=== PATIENT | male | born 1980 | race Caucasian/White ===

== ENCOUNTER 2018-07-11 16:04 | Emergency (ER) | payer BC ==
[2018-07-11 16:47] VITALS: BP 125/78
--- NOTE | 2018-07-11 18:02 | UC ---
Shoulder Pain HPI - HPI Summary HPI Summary: Woke up 2 weeks ago with left shoulder pain. Has decreased range of movement. Denies any discrete injury or trauma. 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 No numbness/tingling. Right-hand dominant. - History of Current Complaint Chief Complaint: UCUpperExtremity Stated Complaint: SHOULDER PAIN Time Seen by Provider: 07/11/18 17:45 Hx Obtained From: Patient Onset/Duration: Gradual Onset, Lasting Weeks, Still Present Timing: Constant Severity Initially: Moderate Severity Currently: Moderate Location Of Pain: Is Discrete @ - LEFT SHOULDER Pain Intensity: 5 Pain Scale Used: 0-10 Numeric Character: Sharp Aggravating Factor(s): Movement Alleviating Factor(s): Rest Associated Signs And Symptoms: Negative: Weakness, Numbness/Tingling Related History: Dominant Hand Right - Allergies/Home Medications Allergies/Adverse Reactions: Allergies Allergy/AdvReac Type Severity Reaction Status Date / Time No Known Allergies Allergy Verified 07/11/18 16:46 PMH/Surg Hx/FS Hx/Imm Hx Previously Healthy: Yes - Surgical History Surgical History: Yes Surgery Procedure, Year, and Place: T+A A CHILD. REVISION RIGHT LONG FINGER AMP 03/22 [facility] - Family History Known Family History: Positive: Non-Contributory - Social History Alcohol Use: Occasionally Substance Use Type: None Smoking Status (MU): Light Every Day Tobacco Smoker Type: Cigarettes Length of Time of Smoking/Using Tobacco: 7 YRS Have You Smoked in the Last Year: Yes When Did the Patient Quit Smoking/Using Tobacco: 1/2 PPD Review of Systems All Other Systems Reviewed And Are Negative: Yes Constitutional: Positive: Negative Skin: Positive: Negative Respiratory: Positive: Negative Cardiovascular: Positive: Negative Gastrointestinal: Positive: Negative Musculoskeletal: Positive: Arthralgia, Decreased ROM Physical Exam Triage Information Reviewed: Yes Appearance: Well-Appearing, No Pain Distress, Well-Nourished Vital Signs: Initial Vital Signs Temp 98.9 F 07/11/18 16:43 Pulse 90 07/11/18 16:43 Resp 19 07/11/18 16:43 BP 125/78 07/11/18 16:43 Pulse Ox 99 07/11/18 16:43 Vital Signs Reviewed: Yes Eyes: Positive: Conjunctiva Clear ENT: Positive: Hearing grossly normal Neck: Positive: Supple Respiratory: Positive: No respiratory distress, No accessory muscle use Cardiovascular: Positive: Pulses Normal Abdomen Description: Positive: Soft Musculoskeletal: Positive: No Edema, ROM Limited @ - LEFT SHOULDER, Other: - POSITIVE NEER, EMPTY CAN, APLEY SCRATCH AND CROSS ARM. EQUIVOCAL MCADAMS. Neurological: Positive: Alert Psychological: Positive: Age Appropriate Behavior Skin: Negative: Rashes Diagnostics - Radiology LEFT SHOULDER XRAYS Radiology Interpretation Completed By: ED Physician Summary of Radiographic Findings: UNREMARKABLE Shoulder Course/Dx - Differential Dx/Diagnosis Provider Diagnosis: Sprain of left shoulder Discharge - Sign-Out/Discharge Documenting (check all that apply): Patient Departure All imaging exams completed and their final reports reviewed: No - Discharge Plan Condition: Stable Disposition: HOME Patient Education Materials: Shoulder Sprain (ED) Forms: *Work Release Referrals: Kennedy Hanley MD [Medical Doctor] - 2 Weeks Additional Instructions: XRAYS OF LEFT SHOULDER TODAY UNREMARKABLE ON MY INITIAL INTERPRETATION. WE WILL CALL YOU IF THE RADIOLOGY READ DIFFERS. REST, IBUPROFEN. WEAR THE SLING NEEDED FOR COMFORT. AVOID OVERHEAD ACTIVITIES AND ANY HEAVY LIFTING, REACHING, PUSHING, PULLING, GRIPPING, TWISTING ACTIVITIES WITH THE LEFT ARM. FOLLOW-UP WITH ORTHO IF YOU DO NOT IMPROVE OVER THE NEXT 1-2 WEEKS. GO TO THE ED WITHOUT FAIL IF YOU DEVELOP CHEST PAIN, SHORTNESS OF BREATH, NAUSEA /VOMITING, DIZZINESS, WORSENING LEFT ARM PAIN OR ANY OTHER CONCERNING SYMPTOMS. CALL THE NUMBER BELOW FOR ASSISTANCE IN ESTABLISHING WITH A PCP An additional resource available to assist in finding the appropriate physician for your health care needs is the [facility] ([facility]). You may contact them by calling [phone]. - Billing Disposition and Condition Condition: STABLE Disposition: Home
--- NOTE | 2018-07-12 20:19 | UC ---
- Progress Note Progress Note: RADIOLOGY REPORT REVIEWED. UNREMARKABLE. NO CHANGE IN MANAGEMENT. Course/Dx - Diagnoses Provider Diagnoses: Sprain of left shoulder Discharge - Sign-Out/Discharge Documenting (check all that apply): Post-Discharge Follow Up All imaging exams completed and their final reports reviewed: Yes - Discharge Plan Condition: Stable Disposition: HOME Patient Education Materials: Shoulder Sprain (ED) Forms: *Work Release Referrals: Kennedy Hanley MD [Medical Doctor] - 2 Weeks Additional Instructions: XRAYS OF LEFT SHOULDER TODAY UNREMARKABLE ON MY INITIAL INTERPRETATION. WE WILL CALL YOU IF THE RADIOLOGY READ DIFFERS. REST, IBUPROFEN. WEAR THE SLING NEEDED FOR COMFORT. AVOID OVERHEAD ACTIVITIES AND ANY HEAVY LIFTING, REACHING, PUSHING, PULLING, GRIPPING, TWISTING ACTIVITIES WITH THE LEFT ARM. FOLLOW-UP WITH ORTHO IF YOU DO NOT IMPROVE OVER THE NEXT 1-2 WEEKS. GO TO THE ED WITHOUT FAIL IF YOU DEVELOP CHEST PAIN, SHORTNESS OF BREATH, NAUSEA /VOMITING, DIZZINESS, WORSENING LEFT ARM PAIN OR ANY OTHER CONCERNING SYMPTOMS. CALL THE NUMBER BELOW FOR ASSISTANCE IN ESTABLISHING WITH A PCP An additional resource available to assist in finding the appropriate physician for your health care needs is the [facility] ([facility]). You may contact them by calling [phone]. - Billing Disposition and Condition Condition: STABLE Disposition: Home
== END 2018-07-11 18:35 | disposition home or self-care (01) ==
LOC: UCEAST 16:04
DX: S43.402A Unspecified sprain of left shoulder joint, initial encounter (principal); X58.XXXA Exposure to other specified factors, initial encounter; Y92.9 Unspecified place or not applicable; F17.210 Nicotine dependence, cigarettes, uncomplicated
CPT/HCPCS: 99201; G0463

== ENCOUNTER 2018-11-03 07:05 | Emergency (ER) | payer BC ==
[2018-11-03 07:19] VITALS: BP 132/73
--- NOTE | 2018-11-03 08:07 | UC ---
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 STRUCK HIS RIGHT RIB CAGE ON THE HANDRAIL. HAS PAIN WITH DEEP INSPIRATION, COUGH, SNEEZE, LAUGHING. NO SHORTNESS OF BREATH. NO FEVER. NOT SPITTING UP BLOOD. - History Of Current Complaint Stated Complaint: RIB INJURY Time Seen by Provider: 11/03/18 07:12 Hx Obtained From: Patient Onset/Duration: Sudden Onset, Lasting Hours, Still Present Onset Of Pain: Immediate Severity Initially: Moderate Severity Currently: Moderate Pain Intensity: 8 Pain Scale Used: 0-10 Numeric Mechanism Of Injury: Direct Blow Aggravating Factor(s): Movement, Deep Breathing, Cough Alleviating factor(s): Rest Associated Signs And Symptoms: Negative: SOB, Chest Pain, Cough, Abdominal Pain , Fever, Nausea - Allergies/Home Medications Allergies/Adverse Reactions: Allergies Allergy/AdvReac Type Severity Reaction Status Date / Time No Known Allergies Allergy Verified 11/03/18 07:19 PMH/Surg Hx/FS Hx/Imm Hx Previously Healthy: Yes - Surgical History Surgical History: Yes Surgery Procedure, Year, and Place: T+A A CHILD. REVISION RIGHT LONG FINGER AMP 03/22 [facility] - Family History Known Family History: Positive: Non-Contributory - Social History Alcohol Use: Occasionally Substance Use Type: None Smoking Status (MU): Light Every Day Tobacco Smoker Type: Cigarettes Amount Used/How Often: 1/2ppd Length of Time of Smoking/Using Tobacco: 7 YRS Have You Smoked in the Last Year: Yes When Did the Patient Quit Smoking/Using Tobacco: 1/2 PPD Household Exposure Type: Cigarettes Review of Systems All Other Systems Reviewed And Are Negative: Yes Constitutional: Positive: Negative Skin: Positive: Bruising Respiratory: Positive: Negative Cardiovascular: Positive: Negative Gastrointestinal: Positive: Negative Musculoskeletal: Positive: Other: - RIGHT RIB CAGE PAIN Physical Exam Triage Information Reviewed: Yes Appearance: Well-Appearing, Well-Nourished, Pain Distress - MILD Vital Signs: Initial Vital Signs Temp 99.2 F 11/03/18 07:14 Pulse 86 11/03/18 07:14 Resp 18 11/03/18 07:14 BP 132/73 11/03/18 07:14 Pulse Ox 99 11/03/18 07:14 Vital Signs Reviewed: Yes Eyes: Positive: Conjunctiva Clear ENT: Positive: Hearing grossly normal Neck: Positive: Supple Respiratory Exam: Normal Cardiovascular Exam: Normal Abdomen Description: Positive: Soft Musculoskeletal: Positive: No Edema, Other: - TTP RIGHT LATERAL RIB CAGE Neurological: Positive: Alert Psychological: Positive: Age Appropriate Behavior Skin: Positive: Other - BRUISING RIGHT MID AXILLARY LINE Diagnostics - Radiology RIGHT RIB XRAYS Radiology Interpretation Completed By: Radiologist Summary of Radiographic Findings: NONDISPLACED FRACTURE OF THE RIGHT LATERAL SIXTH RIB. Truncal Trauma Course/Dx - Differential Dx/Diagnosis Provider Diagnosis: Fracture of one rib, right side, initial encounter for closed fracture Discharge - Sign-Out/Discharge Documenting (check all that apply): Patient Departure All imaging exams completed and their final reports reviewed: Yes - Discharge Plan Condition: Stable Disposition: HOME Patient Education Materials: Rib Fracture (ED) Forms: *Work Release Referrals: [facility] [Outside] - If Needed Additional Instructions: XRAY SHOWS A BREAK IN YOUR RIGHT 6TH RIB. RIB INJURIES AND FRACTURES: You have been diagnosed as having either bruised or broken ribs. These two injuries are treated in the same way. It will usually take four to six weeks for these injured ribs to heal. Sometimes, rib belts or anesthetic injections of the chest wall help reduce the pain. You should cough or take a deep breath at least every hour or two to prevent lung complications. You should not engage in any strenuous physical activity until released by your physician. The usual rule is "if it hurts, don't do it." Rib fractures can lead to serious lung complications including lung collapse, hemorrhage, and pneumonia. You should go to the ED if any of the following occur: (1) Fever or chills. (2) Persistent cough, coughing up blood, or shortness of breath. (3) Increasing pain. (4) Weakness, lightheadedness, or fainting. Be sure to take slow deep breaths several times daily to help keep your lungs expanded. The incentive spirometer will help with this. IBUPROFEN MAX DOSE: 600MG (3 TABS) EVERY 6 HRS OR 800MG (4 TABS) EVERY 8 HRS OR NAPROXEN MAX DOSE: 440MG (2 TABS) EVERY 12 HRS TYLENOL MAX DOSE: 1000MG (2 EXTRA STRENGTH TABS) EVERY 8 HRS OR 650MG (2 REGULAR TABS) EVERY 6 HRS CALL THE NUMBER BELOW FOR ASSISTANCE IN ESTABLISHING WITH A PCP An additional resource available to assist in finding the appropriate physician for your health care needs is the [facility] ([facility]). You may contact them by calling [phone]. - Billing Disposition and Condition Condition: STABLE Disposition: Home
== END 2018-11-03 08:36 | disposition home or self-care (01) ==
LOC: UCEAST 07:05
DX: S22.31XA Fracture of one rib, right side, initial encounter for closed fracture (principal); W10.9XXA Fall (on) (from) unspecified stairs and steps, initial encounter; Y93.01 Activity, walking, marching and hiking; Y92.009 Unspecified place in unspecified non-institutional (private) residence as the place of occurrence of the external cause; F17.210 Nicotine dependence, cigarettes, uncomplicated
CPT/HCPCS: 99211; G0463